=== PATIENT | male | born 1965 | race Caucasian/White ===

== ENCOUNTER 2017-06-11 09:53 | Emergency (ER) | payer BC ==
[~2017-06-11] VITALS: Ht 182.9 cm; Wt 81.6 kg
[2017-06-11] MEDS ORDERED: ZITHROMAX TRI-500 MG PO (12:43)
[2017-06-11] MEDS ORDERED: TUSSI PRES-B L120 M1 PO (12:43)
== END 2017-06-11 12:45 | disposition home or self-care (01) ==
LOC: ER 09:53
DX: B34.9 Viral infection, unspecified (principal)

== ENCOUNTER 2018-09-13 07:57 | Outpatient (CLI) | payer BC ==
[~2018-09-13 07:57] MED LIST: TUSSI PRES-B L120 M1 PO; ZITHROMAX TRI-500 MG PO
== END 2018-09-13 07:59 | disposition home or self-care (01) ==
LOC: RAD 07:57
DX: M54.89 Other dorsalgia (principal); M25.559 Pain in unspecified hip

== ENCOUNTER 2018-11-19 13:32 | Outpatient (CLI) | payer BC, OTHER | END 2018-11-19 13:40 | disposition home or self-care (01) | LOC: LAB 13:32 | DX: D50.8 Other iron deficiency anemias (principal); D68.8 Other specified coagulation defects; Z01.812 Encounter for preprocedural laboratory examination ==

== ENCOUNTER 2018-11-19 14:00 | Outpatient (CLI) | payer BC, OTHER | END 2018-11-19 14:04 | disposition home or self-care (01) | LOC: RAD 14:00 | DX: M16.12 Unilateral primary osteoarthritis, left hip (principal); Z01.810 Encounter for preprocedural cardiovascular examination ==

== ENCOUNTER 2019-02-28 09:09 | Outpatient (CLI) | payer BC | END 2019-02-28 09:12 | disposition home or self-care (01) | LOC: RAD 09:09 | DX: M16.12 Unilateral primary osteoarthritis, left hip (principal) ==

== ENCOUNTER → 2019-04-18 10:21 | Outpatient (CLI) | payer BC | END | disposition home or self-care (01) | LOC: LAB 10:21 | DX: E03.8 Other specified hypothyroidism (principal); E34.8 Other specified endocrine disorders; R73.02 Impaired glucose tolerance (oral); E29.1 Testicular hypofunction ==

== ENCOUNTER 2019-04-22 09:12 | Outpatient (CLI) | payer BC | END 2019-04-22 09:18 | disposition home or self-care (01) | LOC: LAB 09:12 | DX: J11.1 Influenza due to unidentified influenza virus with other respiratory manifestations (principal); J20.0 Acute bronchitis due to Mycoplasma pneumoniae ==

== ENCOUNTER 2019-08-08 10:01 | Outpatient (CLI) | payer BC | END 2019-08-08 10:10 | disposition home or self-care (01) | LOC: LAB 10:01 | DX: E03.8 Other specified hypothyroidism (principal); E34.8 Other specified endocrine disorders; R73.02 Impaired glucose tolerance (oral); E29.1 Testicular hypofunction ==

== ENCOUNTER → 2020-08-04 07:50 | Outpatient (CLI) | payer BC | END | disposition home or self-care (01) | LOC: LAB 07:50 | PROVIDERS: ATTEND Orthopaedic Surgery | DX: D68.8 Other specified coagulation defects (principal); R07.89 Other chest pain; Z96.642 Presence of left artificial hip joint; M16.11 Unilateral primary osteoarthritis, right hip ==

== ENCOUNTER 2020-12-01 16:17 | Outpatient (CLI) | payer BC | END 2020-12-01 16:22 | disposition home or self-care (01) | LOC: RAD 16:17 | DX: M47.817 Spondylosis without myelopathy or radiculopathy, lumbosacral region (principal); M47.814 Spondylosis without myelopathy or radiculopathy, thoracic region; M47.812 Spondylosis without myelopathy or radiculopathy, cervical region ==

== ENCOUNTER 2021-02-23 10:46 | Outpatient (CLI) | payer BC | END 2021-02-23 10:48 | disposition home or self-care (01) | LOC: LAB 10:46 | DX: E03.8 Other specified hypothyroidism (principal); E34.8 Other specified endocrine disorders; E29.1 Testicular hypofunction; R73.02 Impaired glucose tolerance (oral) ==

== ENCOUNTER 2022-06-03 16:47 | Emergency (ER) | payer BC ==
[~2022-06-03] VITALS: Ht 182.9 cm; Wt 83.9 kg
[2022-06-03] MEDS ORDERED: FENOFIBRATE145 MG PO (16:58)
== END 2022-06-03 18:36 | disposition home or self-care (01) ==
LOC: ER 16:47
DX: S46.211A Strain of muscle, fascia and tendon of other parts of biceps, right arm, initial encounter (principal); X58.XXXA Exposure to other specified factors, initial encounter; Y93.71 Activity, boxing; Y92.89 Other specified places as the place of occurrence of the external cause; Y99.9 Unspecified external cause status